=== PATIENT | female | born 1975 | race Hispanic/Latino ===

== ENCOUNTER 2019-09-20 02:04 | Emergency (ER) | payer SELFPAY ==
[2019-09-20 03:21] LABS: #Eosinphils 0.1 thou/uL (0.0-0.7); #Lymphocytes 2.1 thou/uL (1.20-3.40); #Monocytes 0.3 thou/uL (0.11-0.59); #Neutrophils 3.5 thou/uL (1.40-6.50); %Basophils 0.6 % (0.0-1.0); %Eosinophils 1.1 % (0.0-10.0); %Lymphocytes 34.7 % (21.0-51.0); %Monocytes 5.1 % (0.0-10.0); %Neutrophils 58.5 % (42.0-75.0); Hemoglobin 13.1 g/dL (12.0-16.0); Mean Corpuscular HGB CONC 34.7 g/dL (32.0-36.0); Mean Corpuscular Hemoglobin 30.1 pg (27.0-31.0); Mean Corpuscular Volume 86.6 fL (78.0-98.0); Mean Platelet Volume 6.4 fL (7.4-10.4); Platelet Count 289 thou/uL (130-400); RBC Distribution Width 11.9 % (11.5-14.5); Red Blood Cell (RBC) Count 4.35 mill/uL (4.20-5.40); White Blood Cell (WBC) Count 5.9 thou/uL (4.8-10.8)
[2019-09-20 03:38] LABS: ALT (SGPT) 22 U/L (8-55); AST (SGOT) 19 U/L (5-34); Albumin 4.3 g/dL (3.5-5.0); Alkaline Phosphatase 88 U/L (40-110); Anion Gap 9 mmol/L (10-20); BUN (Urea Nitrogen) 13 mg/dL (7.0-18.7); Bilirubin, Total 0.3 mg/dL (0.2-1.2); Calc. Creatinine Clearance 0 mL/min (70-130); Calcium 9.1 mg/dL (7.8-10.44); Carbon Dioxide 28 mmol/L (22-29); Chloride 106 mmol/L (98-107); Estimated GFR-MDRD 67; Globulin 3.5 g/dL (2.4-3.5); Glucose 141 mg/dL (70-105); Lipase 50 U/L (8-78); Potassium 3.8 mmol/L (3.5-5.1); Protein, Total 7.8 g/dL (6.0-8.3); Sodium 139 mmol/L (136-145)
[2019-09-20] MEDS ORDERED: Morphine 4 MG/ML VIAL ONE (05:28)
[2019-09-20] MEDS ORDERED: Ondansetron PF 4 MG/2 ML Vial ONE (05:28)
--- NOTE | 2019-09-20 09:25 | ULT ---
PRELIMINARY REPORT/[facility]/EMERGENCY AFTER HOURS PROCEDURE: PROCEDURE INFORMATION: Exam: US Abdomen Limited, Right Upper Quadrant Exam date and time: 09/20/2019 4:32 AM Age: 43 years old Clinical history: Other: Ruq pain TECHNIQUE: Imaging protocol: Real-time ultrasound of the abdomen with image documentation. Examination was focus ed on the right upper quadrant. COMPARISON: No relevant prior studies available. FINDINGS: Liver: Hepatic steatosis. No masses. Gallbladder: Nonmobile gallstone at the neck of the gallbladder. No gallbladder wall thickening or pe richolecystic fluid detected. Sonographic Aguilar sign positive. Common bile duct: No stones. No dilation. Pancreas: Visualized pancreas is unremarkable. Right kidney: Normal. No mass. No hydronephrosis. IMPRESSION: Nonmobile gallstone at the neck of the gallbladder. No gallbladder wall thickening or pericholecystic fluid detected, however sonographic Aguilar sign positive. HIDA scan may be beneficial for clarificat ion. Thank you for allowing us to participate in the care of your patient. Dictated and Authenticated by: Anneliese Rojas MD 09/20/2019 5:29 AM Central Time ([place] & [place]) FINAL REPORT GALLBLADDER ULTRASOUND: HISTORY: Right upper quadrant pain. FINDINGS: Real-time imaging of the right upper quadrant shows an echogenic focus measuring approximately 2.5 cm in the gallbladder neck, which does not appear mobile. No gallbladder wall thickening. Technologist did report a positive ultrasound Aguilar's sign. Common duct is 4 mm. The liver is of increased echoge nicity consistent with fatty change. Pancreas partially obscured. Right kidney is normal in size and not obstructed. IMPRESSION: 1. Cholelithiasis with a normal caliber common duct and a positive ultrasound Aguilar's sign. 2. Fatty change of the liver. This report is in agreement with the preliminary report issued by [facility]. POS: [facility]
== END 2019-09-20 06:25 | disposition home or self-care (01) ==
LOC: ERS 02:04
DX: K80.20 Calculus of gallbladder without cholecystitis without obstruction (principal)
CPT/HCPCS: 36415; 76705; 80053; 83690; 85025; J2270; J2405

== ENCOUNTER 2019-10-22 22:48 | Emergency (ER) | payer SELFPAY ==
[2019-10-22] MEDS ORDERED: Ondansetron PF 4 MG/2 ML Vial ONE (22:55)
[2019-10-22] MEDS ORDERED: Morphine 4 MG/ML VIAL ONE (22:55)
[2019-10-22 23:25] LABS: #Basophils 0.1 thou/uL (0.0-0.2); #Eosinphils 0.1 thou/uL (0.0-0.7); #Lymphocytes 2.4 thou/uL (1.20-3.40); #Monocytes 0.5 thou/uL (0.11-0.59); #Neutrophils 4.8 thou/uL (1.40-6.50); %Basophils 0.7 % (0.0-1.0); %Eosinophils 1.3 % (0.0-10.0); %Lymphocytes 30.5 % (21.0-51.0); %Neutrophils 61.5 % (42.0-75.0); Hemoglobin 13.8 g/dL (12.0-16.0); Mean Corpuscular HGB CONC 35.9 g/dL (32.0-36.0); Mean Corpuscular Hemoglobin 30.6 pg (27.0-31.0); Mean Corpuscular Volume 85.2 fL (78.0-98.0); Mean Platelet Volume 6.5 fL (7.4-10.4); Platelet Count 317 thou/uL (130-400); RBC Distribution Width 11.8 % (11.5-14.5); Red Blood Cell (RBC) Count 4.52 mill/uL (4.20-5.40); White Blood Cell (WBC) Count 7.8 thou/uL (4.8-10.8)
[2019-10-22 23:27] LABS: Bacteria/HPF None Seen HPF (None Seen); Bilirubin Negative (Negative); Blood, Urine Negative (Negative); Clarity Clear (Clear); Glucose, Urine (Dipstick) Normal (Negative); Leukocyte 25 Leu/uL (Negative); Nitrite Negative (Negative); Protein, Urine (Dipstick) Negative (Neg-Trace); RBC/HPF 0-3 HPF (0-3); Squamous Epithelial 0-3 HPF (0-3); Urobilinogen Normal mg/dL (Less than 2); WBC/HPF 0-3 HPF (0-3)
[2019-10-22 23:28] LABS: Pregnancy Test - Urine (BHCG) Negative (Negative); Pregu Control Background? CLEAR/WHITE (CLR/WHITE); Pregu Control Bar Appear? YES (CONTROL BAR)
[2019-10-22 23:49] LABS: ALT (SGPT) 27 U/L (8-55); AST (SGOT) 24 U/L (5-34); Albumin 4.7 g/dL (3.5-5.0); Alkaline Phosphatase 94 U/L (40-110); Anion Gap 12 mmol/L (10-20); BUN (Urea Nitrogen) 9 mg/dL (7.0-18.7); Bilirubin, Total 0.3 mg/dL (0.2-1.2); Calc. Creatinine Clearance 0 mL/min (70-130); Calcium 9.7 mg/dL (7.8-10.44); Carbon Dioxide 26 mmol/L (22-29); Chloride 106 mmol/L (98-107); Estimated GFR-MDRD 67; Globulin 3.9 g/dL (2.4-3.5); Glucose 141 mg/dL (70-105); Lipase 45 U/L (8-78); Potassium 3.1 mmol/L (3.5-5.1); Protein, Total 8.6 g/dL (6.0-8.3); Sodium 141 mmol/L (136-145)
--- NOTE | 2019-10-22 23:50 | ULT ---
Right upper quadrant ultrasound: 10/22/2019 HISTORY: Right upper quadrant pain TECHNIQUE: Multiplanar grayscale sonographic imaging of the right upper quadrant obtained. FINDINGS: The imaged pancreas is unremarkable. The pancreas is partially obscured by bowel gas. The h epatic parenchyma is heterogeneous and echogenic, suggesting steatosis. There is a shadowing 2.7 cm stone within the gallbladder lumen. No gallbladder wall thickening. No pe richolecystic fluid. The director of consulting services reports a positive Aguilar's sign. The common bile duct measures 5 mm, within normal limits. Right kidney measures 9.6 cm in craniocaudal dimension and demonstrates no stone, hydronephrosis, or mass. IMPRESSION: Cholelithiasis. Given positive Aguilar's sign, acute cholecystitis cannot be excluded. If there is clinical concern for acute cholecystitis, hepatobiliary scan suggested. Of note, no significant gallbladder wall thickening or pericholecystic fluid is seen.
== END 2019-10-23 01:03 | disposition home or self-care (01) ==
LOC: ERS 22:48
DX: K80.20 Calculus of gallbladder without cholecystitis without obstruction (principal)
CPT/HCPCS: 76705; 80053; 81003; 81015; 81025; 83690; 85025; 96374; 96375; J2270; J2405